=== PATIENT | female | born 1965 | race Caucasian/White ===

== ENCOUNTER → 2016-11-24 | Outpatient (REF) | payer OTHER ==
[~2016-11-24] MED LIST: ALEV220T26 PO; MULTTAB6 PO; PERCOCET PO; TYLE325T5 PO; VALT1TAB PO
[2016-11-24 18:07] LABS: INR 0.92
== END ==
LOC: M LABDRAW1 16:30
PROVIDERS: ATTEND Physical Medicine & Rehabilitation
DX: Z01.818 Encounter for other preprocedural examination (principal); M47.22 Other spondylosis with radiculopathy, cervical region

== ENCOUNTER → 2017-01-20 | Outpatient (REF) | payer OTHER ==
[2017-01-20 16:54] LABS: BLOOD UREA NITROGEN 14 MG/DL (7-18); CREATININE FOR GFR 0.82 MG/DL (0.55-1.02)
[2017-01-20 16:55] LABS: GLOMERULAR FILTRATION RATE > 60.0 (>51)
== END ==
LOC: M LABDRAW1 15:29
PROVIDERS: ATTEND Physical Medicine & Rehabilitation
DX: M48.02 Spinal stenosis, cervical region (principal)

== ENCOUNTER 2017-03-27 15:21 | Emergency (ER) | payer OTHER ==
[~2017-03-27] VITALS: Ht 154.9 cm; Wt 99.8 kg
[2017-03-27 15:22] VITALS: BP 146/74
[2017-03-27] MEDS ORDERED: CLIN1CAP5 PO (15:44)
[2017-03-27] MEDS ORDERED: IBUP80TA PO (15:44)
[2017-03-27] MEDS ORDERED: HYDR1CR EXT (15:44)
[2017-03-27] MEDS ORDERED: CLAR1TAB2 PO (15:44)
== END 2017-03-27 15:55 | disposition home or self-care (01) ==
LOC: M ED 15:54
DX: L98.9 Disorder of the skin and subcutaneous tissue, unspecified (principal); M54.9 Dorsalgia, unspecified; Z79.899 Other long term (current) drug therapy; Z90.79 Acquired absence of other genital organ(s); Z90.49 Acquired absence of other specified parts of digestive tract

== ENCOUNTER 2017-05-16 21:18 | Emergency (ER) | payer OTHER ==
[~2017-05-16] VITALS: Ht 154.9 cm; Wt 106.2 kg
[~2017-05-16 21:18] MED LIST changes: +CLAR1TAB2 PO; +CLIN150C14 PO; +HYDR1CRE2 EXT; +IBUP80TA PO
[2017-05-16] MEDS ORDERED: PRED10PA2 PO (21:34)
[2017-05-17 01:30] LABS: BASO # 0.1 K/mm3 (0.0-0.2); BASO % 0.6 % (0.0-1.0); EOS # 0.1 K/mm3 (0.0-0.50); EOS % 0.7 % (0.0-3.0); LARGE UNSTAINED CELL # 0.3 K/mm3 (0.0-0.4); LARGE UNSTAINED CELL % 1.8 % (0.0-4.0); LYMPH # 1.9 K/mm3 (1.5-4.5); MEAN CORPUSCULAR HEMOGLOBIN 29.9 pg (27.0-33.0); MEAN CORPUSCULAR HGB CONC 34.3 g/dl (32.0-36.5); MEAN CORPUSCULAR VOLUME 87.1 fl (80.0-96.0); MONO # 0.8 K/mm3 (0.0-0.8); MONO % 6.1 % (0.0-5.0); NEUTROPHILS # 10.5 K/mm3 (1.8-7.7); NEUTROPHILS % 76.8 % (36.0-66.0); PLATELET COUNT, AUTOMATED 283 k/mm3 (150-450); RED CELL DISTRIBUTION WIDTH 14.4 % (11.5-14.5); WHITE BLOOD COUNT 13.6 K/mm3 (4.0-10.0)
[2017-05-17 01:50] LABS: ALBUMIN/GLOBULIN RATIO 1.14 (1.00-1.93); ALKALINE PHOSPHATASE 90 U/L (45-117); ALT/SGPT 62 U/L (12-78); ANION GAP 8 MEQ/L (8-16); AST/SGOT 23 U/L (15-37); BILIRUBIN,DIRECT 0.2 MG/DL (0.0-0.2); BILIRUBIN,TOTAL 0.5 MG/DL (0.2-1.0); BLOOD UREA NITROGEN 24 MG/DL (7-18); CALCIUM LEVEL 8.8 MG/DL (8.5-10.1); CARBON DIOXIDE LEVEL 27 MEQ/L (21-32); CHLORIDE LEVEL 108 MEQ/L (98-107); CREATININE FOR GFR 0.75 MG/DL (0.55-1.02); GLOMERULAR FILTRATION RATE > 60.0 (>51); GLUCOSE, FASTING 110 MG/DL (70-105); SODIUM LEVEL 143 MEQ/L (136-145); TOTAL PROTEIN 7.5 GM/DL (6.4-8.2)
[2017-05-17 02:14] LABS: ERYTHROCYTE SEDIMENTATION RATE 19 mm/hr (0-30)
[2017-05-17 04:15] VITALS: BP 178/75
== END 2017-05-17 04:50 | disposition home or self-care (01) ==
LOC: M ED 21:18
DX: L95.9 Vasculitis limited to the skin, unspecified (principal); R21 Rash and other nonspecific skin eruption; Z79.899 Other long term (current) drug therapy; Z90.79 Acquired absence of other genital organ(s); Z90.49 Acquired absence of other specified parts of digestive tract; Z90.89 Acquired absence of other organs

== ENCOUNTER 2017-05-24 15:21 | Emergency (ER) | payer OTHER ==
[~2017-05-24] VITALS: Ht 154.9 cm; Wt 105.1 kg
[~2017-05-24 15:21] MED LIST changes: +PRED10PA2 PO
[2017-05-24] MEDS ORDERED: HYDR-3363 PO (15:33)
[2017-05-24] MEDS ORDERED: PRED10TA2 PO (16:27)
[2017-05-24] MEDS ORDERED: predniSONE 20 MG TAB PO ONE (16:30)
[2017-05-24 16:39] VITALS: BP 137/79
== END 2017-05-24 16:46 | disposition home or self-care (01) ==
LOC: M ED 15:21
DX: L29.8 Other pruritus (principal); T78.40XA Allergy, unspecified, initial encounter; X58.XXXA Exposure to other specified factors, initial encounter; Y92.9 Unspecified place or not applicable; Y93.9 Activity, unspecified; Y99.8 Other external cause status; M54.5 Low back pain; Z90.49 Acquired absence of other specified parts of digestive tract; Z79.899 Other long term (current) drug therapy

== ENCOUNTER 2017-09-22 07:41 | Emergency (ER) | payer MEDICAID, OTHER, SELFPAY ==
[~2017-09-22] VITALS: Ht 154.9 cm; Wt 101.2 kg
[~2017-09-22 07:41] MED LIST changes: +HYDR-3363 PO; +PRED10TA2 PO
--- NOTE | 2017-09-22 08:30 | REP ---
Clinical: Trauma. Technique: AP, lateral, bilateral oblique views left foot . Findings: The osseous structures and joint spaces are intact and normal. There is no evidence for acute fracture or dislocation. Surrounding soft tissues are unremarkable. No subcutaneous emphysema or radiodense foreign body. Impression: No acute fracture or dislocation. Signed by Jose Manuel Avila MD 09/22/2017 08:21 A
[2017-09-22 09:09] VITALS: BP 171/90
== END 2017-09-22 09:11 | disposition home or self-care (01) ==
LOC: M ED 07:41
DX: S90.32XA Contusion of left foot, initial encounter (principal); W19.XXXA Unspecified fall, initial encounter; Y92.098 Other place in other non-institutional residence as the place of occurrence of the external cause; Y93.89 Activity, other specified; Y99.8 Other external cause status

== ENCOUNTER → 2017-11-01 | Outpatient (CLI) | payer OTHER ==
[2017-11-01 09:56] LABS: BASO # 0.1 10^3/uL (0.0-0.2); BASO % 0.6 % (0.0-1.0); EOS # 0.2 10^3/uL (0.0-0.50); EOS % 2.1 % (0.0-3.0); HEMATOCRIT 40.9 % (36.0-47.0); HEMOGLOBIN 13.7 g/dl (12.0-16.0); IMMATURE GRANULOCYTE % 0.2 % (0-0); LYMPH % 23.8 % (24.0-44.0); MEAN CORPUSCULAR HGB CONC 33.5 g/dl (32.0-36.5); MEAN CORPUSCULAR VOLUME 86.5 fl (80.0-96.0); MONO # 0.8 10^3/uL (0.0-0.8); MONO % 9.1 % (0.0-5.0); NEUTROPHILS # 5.3 10^3/uL (1.8-7.7); NEUTROPHILS % 64.2 % (36.0-66.0); PLATELET COUNT, AUTOMATED 259 10^3/uL (150-450); RED BLOOD COUNT 4.73 10^6/uL (4.00-5.40); RED CELL DISTRIBUTION WIDTH 13.9 % (11.5-14.5); WHITE BLOOD COUNT 8.2 10^3/uL (4.0-10.0)
[2017-11-01 09:57] LABS: IONIZED CALCIUM 4.6 MG/DL (4.5-5.3)
[2017-11-01 10:06] LABS: INR 0.99; PROTHROMBIN TIME 13.2 SECONDS (12.4-14.5)
[2017-11-01 10:07] LABS: PARTIAL THROMBOPLASTIN TIME 30.3 SECONDS (26.8-37.9)
[2017-11-01 10:18] LABS: ANION GAP 5 MEQ/L (8-16); BLOOD UREA NITROGEN 12 MG/DL (7-18); CALCIUM LEVEL 9.3 MG/DL (8.5-10.1); CARBON DIOXIDE LEVEL 30 MEQ/L (21-32); CHLORIDE LEVEL 106 MEQ/L (98-107); CREATININE FOR GFR 0.71 MG/DL (0.55-1.02); GLOMERULAR FILTRATION RATE > 60.0 (>51); GLUCOSE, FASTING 96 MG/DL (70-105); POTASSIUM SERUM 4.2 MEQ/L (3.5-5.1); SODIUM LEVEL 141 MEQ/L (136-145)
== END ==
LOC: M LAB 09:21
DX: Z01.812 Encounter for preprocedural laboratory examination (principal); R06.02 Shortness of breath; Z82.49 Family history of ischemic heart disease and other diseases of the circulatory system

== ENCOUNTER 2018-03-27 01:50 | Emergency (ER) | payer OTHER | END 2018-03-27 02:09 | disposition home or self-care (01) | LOC: M ED 01:50 | DX: G89.29 Other chronic pain (principal); M25.512 Pain in left shoulder; M54.9 Dorsalgia, unspecified; M54.2 Cervicalgia; Z79.899 Other long term (current) drug therapy | CPT/HCPCS: 99282 ==

== ENCOUNTER 2018-04-04 07:19 | Outpatient (RCR) | payer OTHER | END 2018-04-23 | LOC: M PT 07:19 | DX: Z51.89 Encounter for other specified aftercare (principal); M25.512 Pain in left shoulder | CPT/HCPCS: 97010 ==

== ENCOUNTER 2018-04-25 09:21 | Outpatient (RCR) | payer OTHER | END 2018-05-24 | LOC: M PT 09:21 | DX: Z51.89 Encounter for other specified aftercare (principal); M75.42 Impingement syndrome of left shoulder; R20.0 Anesthesia of skin; R20.2 Paresthesia of skin; G25.89 Other specified extrapyramidal and movement disorders ==

== ENCOUNTER 2018-05-25 08:14 | Outpatient (RCR) | payer OTHER | END 2018-06-24 | LOC: M PT 06-01 08:00 | DX: M25.512 Pain in left shoulder (principal); Z51.89 Encounter for other specified aftercare | CPT/HCPCS: 97010 ==

== ENCOUNTER → 2018-12-12 | Outpatient (CLI) | payer OTHER ==
[~2018-12-12] MED LIST changes: +HYDR-3713 PO; +TIZA4CAP PO
[2018-12-12 08:18] LABS: BASO # 0.1 10^3/uL (0.0-0.2); BASO % 0.8 % (0.0-1.0); EOS # 0.2 10^3/uL (0.0-0.50); EOS % 2.1 % (0.0-3.0); HEMATOCRIT 41.5 % (36.0-47.0); HEMOGLOBIN 13.9 g/dl (12.0-15.5); LYMPH # 2.1 10^3/uL (1.5-4.5); MEAN CORPUSCULAR HEMOGLOBIN 29.6 pg (27.0-33.0); MEAN CORPUSCULAR HGB CONC 33.5 g/dl (32.0-36.5); MEAN CORPUSCULAR VOLUME 88.3 fl (80.0-96.0); MONO # 0.8 10^3/uL (0.0-0.8); NEUTROPHILS % 60.6 % (36.0-66.0); PLATELET COUNT, AUTOMATED 259 10^3/uL (150-450); WHITE BLOOD COUNT 8.2 10^3/uL (4.0-10.0)
[2018-12-12 08:58] LABS: ALBUMIN 4.3 GM/DL (3.2-5.2); ALT/SGPT 48 U/L (12-78); BILIRUBIN,TOTAL 0.8 MG/DL (0.2-1.0); BLOOD UREA NITROGEN 16 MG/DL (7-18); CALCIUM LEVEL 9.2 MG/DL (8.5-10.1); CARBON DIOXIDE LEVEL 29 MEQ/L (21-32); CHLORIDE LEVEL 107 MEQ/L (98-107); CHOLESTEROL LEVEL 234 MG/DL (<200); CHOLESTEROL RISK RATIO 4.588 (<5); CREATININE FOR GFR 0.73 MG/DL (0.55-1.30); GLOMERULAR FILTRATION RATE > 60.0 (>51); GLUCOSE, FASTING 97 MG/DL (70-100); HDL CHOLESTEROL 51 MG/DL (>40); LDL CHOLESTEROL 164 MG/DL (<100); NON-HDL-C 183 MG/DL; POTASSIUM SERUM 5.1 MEQ/L (3.5-5.1); SODIUM LEVEL 140 MEQ/L (136-145); TOTAL PROTEIN 7.9 GM/DL (6.4-8.2); TRIGLYCERIDES LEVEL 93 MG/DL (<150)
== END ==
LOC: M LAB 07:54
PROVIDERS: ATTEND Physician Assistant Medical
DX: R53.83 Other fatigue (principal); I10 Essential (primary) hypertension

== ENCOUNTER 2018-12-21 07:30 | Outpatient (RCR) | payer OTHER | END 2018-12-22 | LOC: M PT 07:30 | PROVIDERS: ATTEND Orthopaedic Surgery | DX: M75.42 Impingement syndrome of left shoulder (principal); M75.22 Bicipital tendinitis, left shoulder ==

== ENCOUNTER 2019-01-20 07:30 | Outpatient (RCR) | payer OTHER | END 2019-01-22 | LOC: M PT 07:30 | PROVIDERS: ATTEND Orthopaedic Surgery | DX: M75.22 Bicipital tendinitis, left shoulder (principal) ==

== ENCOUNTER 2019-02-20 08:15 | Outpatient (RCR) | payer OTHER ==
[~2019-02-20 08:15] MED LIST changes: +OXYC1TAB23 PO; -PERCOCET PO
== END 2019-02-21 ==
LOC: M PT 08:15
PROVIDERS: ATTEND Orthopaedic Surgery
DX: M25.512 Pain in left shoulder (principal)

== ENCOUNTER 2019-02-22 19:39 | Emergency (ER) | payer OTHER ==
[~2019-02-22] VITALS: Ht 154.9 cm; Wt 100.0 kg
[2019-02-22 19:40] VITALS: BP 154/86
--- NOTE | 2019-02-23 01:31 | REP ---
Clinical: Left shoulder pain status post trauma/fall . Technique: Internal rotation, external rotation, and Y view. Findings: No acute fracture or dislocation. The acromioclavicular and glenohumeral joints are intact. No periarticular calcifications or degenerative changes are appreciated. Sub acromial space is normal. Surrounding soft tissues are unremarkable. Impression: Normal left shoulder radiographs. No acute fracture or dislocation appreciated. Electronically Signed by Jose Manuel Avila MD 02/23/2019 01:23 A
== END 2019-02-22 21:45 | disposition home or self-care (01) ==
LOC: M ED 19:39
DX: S40.012A Contusion of left shoulder, initial encounter (principal); W19.XXXA Unspecified fall, initial encounter; Y92.099 Unspecified place in other non-institutional residence as the place of occurrence of the external cause; Y93.9 Activity, unspecified; Y99.9 Unspecified external cause status; Z79.899 Other long term (current) drug therapy

== ENCOUNTER → 2019-03-24 | Outpatient (RCR) | payer OTHER | LOC: M PT 03-10 07:30 | PROVIDERS: ATTEND Orthopaedic Surgery | DX: M75.42 Impingement syndrome of left shoulder (principal); M75.22 Bicipital tendinitis, left shoulder ==

== ENCOUNTER 2019-07-19 07:49 | Outpatient (RCR) | payer OTHER | END 2019-07-24 | LOC: M PT 07:49 | PROVIDERS: ATTEND Orthopaedic Surgery | DX: Z47.89 Encounter for other orthopedic aftercare (principal); Z98.890 Other specified postprocedural states; M25.512 Pain in left shoulder ==

== ENCOUNTER 2019-08-21 07:45 | Outpatient (RCR) | payer OTHER | END 2019-08-24 | LOC: M PT 07:45 | PROVIDERS: ATTEND Orthopaedic Surgery | DX: Z47.89 Encounter for other orthopedic aftercare (principal); Z98.890 Other specified postprocedural states ==

== ENCOUNTER 2019-09-19 07:00 | Outpatient (RCR) | payer OTHER | END 2019-09-23 | LOC: M PT 07:00 | PROVIDERS: ATTEND Orthopaedic Surgery | DX: Z47.89 Encounter for other orthopedic aftercare (principal); Z98.890 Other specified postprocedural states ==

== ENCOUNTER 2019-10-17 07:00 | Outpatient (RCR) | payer OTHER | END 2019-10-24 | LOC: M PT 07:00 | PROVIDERS: ATTEND Orthopaedic Surgery | DX: Z98.890 Other specified postprocedural states (principal) ==

== ENCOUNTER → 2020-07-18 | Outpatient (CLI) | payer OTHER ==
[2020-07-18 07:17] LABS: BASO # 0.1 10^3/uL (0.0-0.2); BASO % 0.7 % (0.0-1.0); EOS # 0.3 10^3/uL (0.0-0.5); EOS % 3.1 % (0.0-3.0); HEMATOCRIT 41.5 % (36.0-47.0); HEMOGLOBIN 13.4 g/dl (12.0-15.5); LYMPH # 2.5 10^3/uL (1.5-5.0); LYMPH % 26.9 % (24.0-44.0); MEAN CORPUSCULAR HEMOGLOBIN 29.3 pg (27.0-33.0); MEAN CORPUSCULAR HGB CONC 32.3 g/dl (32.0-36.5); MEAN CORPUSCULAR VOLUME 90.6 fl (80.0-96.0); MONO # 0.9 10^3/uL (0.0-0.8); MONO % 9.3 % (0.0-5.0); NEUTROPHILS # 5.6 10^3/uL (1.5-8.5); NEUTROPHILS % 59.4 % (36.0-66.0); PLATELET COUNT, AUTOMATED 238 10^3/uL (150-450); RED BLOOD COUNT 4.58 10^6/uL (4.00-5.40); WHITE BLOOD COUNT 9.5 10^3/uL (4.0-10.0)
[2020-07-18 07:38] LABS: ALBUMIN 3.8 GM/DL (3.2-5.2); ALT/SGPT 30 U/L (12-78); BILIRUBIN,TOTAL 0.5 MG/DL (0.2-1.0); BLOOD UREA NITROGEN 20 MG/DL (7-18); CARBON DIOXIDE LEVEL 28 MEQ/L (21-32); CHLORIDE LEVEL 110 MEQ/L (98-107); CHOLESTEROL LEVEL 247 MG/DL (<200); CHOLESTEROL RISK RATIO 5.145 (<5); CREATININE FOR GFR 0.67 MG/DL (0.55-1.30); GLOMERULAR FILTRATION RATE > 60.0 (>51); GLUCOSE, FASTING 97 MG/DL (70-100); HDL CHOLESTEROL 48 MG/DL (>40); IRON (FE) 53 UG/DL (50-170); LDL CHOLESTEROL 165 MG/DL (<100); NON-HDL-C 199 MG/DL; PERCENT SATURATION 17.9 % (13.2-45.0); POTASSIUM SERUM 4.6 MEQ/L (3.5-5.1); SODIUM LEVEL 141 MEQ/L (136-145); TOTAL IRON BINDING CAPACITY 296 UG/DL (250-450); TOTAL PROTEIN 7.6 GM/DL (6.4-8.2); TRIGLYCERIDES LEVEL 168 MG/DL (<150)
[2020-07-18 07:39] LABS: FERRITIN 118 NG/ML (8-252)
[2020-07-18 09:45] LABS: VITAMIN B12 LEVEL 687 PG/ML
--- NOTE | 2020-07-20 09:14 | ECGEPIP ---
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
--- NOTE | 2020-07-26 07:48 | REP ---
CHEST X-RAY CLINICAL: Preoperative assessment. TECHNIQUE: PA and lateral. FINDINGS: Mediastinum and cardiac silhouette normal. Lung go clear. No consolidation, effusion, or pneumothorax. Skeletal structures are intact. Evidence for prior cervical fixation. IMPRESSION: No acute cardiopulmonary process or focal consolidation. MTDD
== END ==
LOC: M LAB 06:35
PROVIDERS: ATTEND Surgery
DX: Z01.810 Encounter for preprocedural cardiovascular examination (principal); E66.01 Morbid (severe) obesity due to excess calories

== ENCOUNTER → 2020-12-24 | Outpatient (CLI) | payer OTHER ==
[~2020-12-24] MED LIST changes: -CLIN150C14 PO; +CLIN150C15 PO
--- NOTE | 2020-12-24 11:24 | REP ---
INDICATION: LEFT SHOULDER PAIN. COMPARISON: None. TECHNIQUE: Internal rotation, external rotation, Y-view and axillary view. FINDINGS: There appears to be prior surgical resection to the distal clavicle. Remainder of the examination is relatively age-appropriate and normal. Subacromial space is normal. No periarticular calcifications or loose bodies. No evidence for acute fracture or dislocation. IMPRESSION: 1. Surgical resection to the distal clavicle. 2. Otherwise age-appropriate examination. <Electronically signed by Jose Manuel Avila > 12/24/20 [id number]
== END ==
LOC: M SOG 11:01
PROVIDERS: ATTEND Orthopaedic Surgery Sports Medicine
DX: M75.42 Impingement syndrome of left shoulder (principal)

== ENCOUNTER → 2021-01-14 | Outpatient (CLI) | payer OTHER ==
--- NOTE | 2021-01-15 10:24 | REP ---
INDICATION: LEFT SHOULDER PAIN. Status post arthroscopic debridement, chondroplasty, acromioplasty, distal clavicle excision and rotator cuff repair since prior MRI. COMPARISON: 05/06/2019. TECHNIQUE: Coronal oblique T1, T2 fat sat, sagittal oblique T2 fat sat, axial T2 fat sat, gradient echo. FINDINGS: Rotator cuff: No evidence of tear. An anterior anchor is noted in the humeral head. There is mild tendinopathy/tendinitis of the supraspinatus tendon. Acromioclavicular joint: Distal clavicle excision noted. No subacromial spurring seen. Acromion: Type 2 Biceps Tendon: In bicipital groove, no tenosynovitis. Hill Sach's deformity: None. Deltoid muscle: No abnormal signal. Biceps labral complex: There appears to be mild fraying of the biceps labral complex. Labrum: No tear. Cartilage: No defects. Bone marrow: No abnormal signal. Joint fluid: No effusion. IMPRESSION: Postsurgical changes as above. No evidence of rotator cuff tear or labral tear. There is mild tendinopathy/tendinitis of the supraspinatus tendon. There appears to be mild fraying of the biceps labral complex. <Electronically signed by Celestino Mccracken > 01/15/21 102
== END ==
LOC: M PLARAD 12:25
PROVIDERS: ATTEND Orthopaedic Surgery Sports Medicine
DX: M75.42 Impingement syndrome of left shoulder (principal)

== ENCOUNTER → 2021-04-30 | Outpatient (CLI) | payer MEDICARE, OTHER ==
[2021-04-30 07:25] LABS: HEMATOCRIT 39.7 % (36.0-47.0); HEMOGLOBIN 12.9 g/dl (12.0-15.5); MEAN CORPUSCULAR HGB CONC 32.5 g/dl (32.0-36.5); MEAN CORPUSCULAR VOLUME 89.2 fl (80.0-96.0); PLATELET COUNT, AUTOMATED 229 10^3/uL (150-450); RED BLOOD COUNT 4.45 10^6/uL (4.00-5.40); WHITE BLOOD COUNT 7.5 10^3/uL (4.0-10.0)
[2021-04-30 07:55] LABS: ALBUMIN 4.2 GM/DL (3.2-5.2); ALT/SGPT 26 U/L (12-78); BILIRUBIN,TOTAL 0.7 MG/DL (0.2-1.0); BLOOD UREA NITROGEN 15 MG/DL (7-18); CALCIUM LEVEL 8.9 MG/DL (8.5-10.1); CARBON DIOXIDE LEVEL 28 MEQ/L (21-32); CHLORIDE LEVEL 108 MEQ/L (98-107); CREATININE FOR GFR 0.55 MG/DL (0.55-1.30); FERRITIN 192 NG/ML (8-252); GLOMERULAR FILTRATION RATE > 60.0 (>51); GLUCOSE, FASTING 77 MG/DL (70-100); IRON (FE) 56 UG/DL (50-170); PERCENT SATURATION 21.5 % (13.2-45.0); POTASSIUM SERUM 3.8 MEQ/L (3.5-5.1); SODIUM LEVEL 142 MEQ/L (136-145); TOTAL IRON BINDING CAPACITY 260 UG/DL (250-450); TOTAL PROTEIN 7.4 GM/DL (6.4-8.2)
[2021-04-30 09:39] LABS: TOTAL 25(OH) VITAMIN D 37.1 NG/ML (30.0-100.0)
[2021-04-30 09:40] LABS: VITAMIN B12 LEVEL 940 PG/ML (247-911)
== END ==
LOC: M LAB 06:24
PROVIDERS: ATTEND Surgery
DX: K91.2 Postsurgical malabsorption, not elsewhere classified (principal)

== ENCOUNTER → 2021-05-09 | Outpatient (CLI) | payer OTHER | LOC: M PAIN 08:30 | PROVIDERS: ATTEND Nurse Practitioner Family | DX: Z53.9 Procedure and treatment not carried out, unspecified reason (principal) ==

== ENCOUNTER → 2021-05-09 | Outpatient (CLI) | payer OTHER ==
[~2021-05-09] MED LIST changes: +LIDOCAINE 1% MDV 20ML VIAL As Ordered ONE; +TRIAMCINOLONE ACETONIDE SUSP 40 MG/ML VIAL (J3301) As Ordered ONE; +methylPREDNISolone SUSP 40MG/ML 1ML VIAL (DEPO MEDROL) As Ordered ONE
--- NOTE | 2021-05-09 14:57 | REP ---
INDICATION: STRAIN LT ARM. COMPARISON: None. TECHNIQUE: The procedure was performed under the direct supervision of Dr. Weber. The risks and benefits of the procedure were explained to the patient and informed consent obtained. The left biceps tendon sheath was localized using ultrasound guidance. The skin was prepped and draped in a sterile fashion. 1% lidocaine was used as a local anesthetic. Using ultrasound guidance a 25 gauge needle was inserted and advanced into the tendon sheath. 5 cc of a solution containing 3 cc of 1% lidocaine and 2 cc of Depo-Medrol 40 mg was injected. The needle was then removed. The patient tolerated the procedure well and there were no immediate complications. FINDINGS: None IMPRESSION: Ultrasound-guided left biceps tendon sheath injection. <Electronically signed by Jose M Milner > 05/09/21 [id number] <Electronically signed by Matty Weber > 05/09/21 [id number]
== END ==
LOC: M IRPRO 09:40
PROVIDERS: ATTEND Orthopaedic Surgery Sports Medicine
DX: S46.212A Strain of muscle, fascia and tendon of other parts of biceps, left arm, initial encounter (principal)
CPT/HCPCS: 20550; 76942; J1030

== ENCOUNTER → 2021-07-23 | Outpatient (CLI) | payer MEDICARE, OTHER ==
[~2021-07-23] MED LIST changes: -CLIN150C15 PO; +CLIN150C17 PO; -LIDOCAINE 1% MDV 20ML VIAL As Ordered ONE; -TRIAMCINOLONE ACETONIDE SUSP 40 MG/ML VIAL (J3301) As Ordered ONE; -methylPREDNISolone SUSP 40MG/ML 1ML VIAL (DEPO MEDROL) As Ordered ONE
[2021-07-23 08:21] LABS: HEMATOCRIT 40.4 % (36.0-47.0); HEMOGLOBIN 13.2 g/dl (12.0-15.5); MEAN CORPUSCULAR HEMOGLOBIN 29.3 pg (27.0-33.0); MEAN CORPUSCULAR HGB CONC 32.7 g/dl (32.0-36.5); MEAN CORPUSCULAR VOLUME 89.8 fl (80.0-96.0); PLATELET COUNT, AUTOMATED 257 10^3/uL (150-450); WHITE BLOOD COUNT 7.8 10^3/uL (4.0-10.0)
[2021-07-23 08:46] LABS: ALBUMIN 4.1 GM/DL (3.2-5.2); ALT/SGPT 32 U/L (12-78); BILIRUBIN,TOTAL 0.9 MG/DL (0.2-1.0); BLOOD UREA NITROGEN 17 MG/DL (7-18); CALCIUM LEVEL 9.3 MG/DL (8.5-10.1); CARBON DIOXIDE LEVEL 31 MEQ/L (21-32); CHLORIDE LEVEL 106 MEQ/L (98-107); CREATININE FOR GFR 0.62 MG/DL (0.55-1.30); FERRITIN 210 NG/ML (8-252); GLOMERULAR FILTRATION RATE > 60.0 (>51); GLUCOSE, FASTING 78 MG/DL (70-100); IRON (FE) 79 UG/DL (50-170); PERCENT SATURATION 29.4 % (13.2-45.0); POTASSIUM SERUM 3.7 MEQ/L (3.5-5.1); SODIUM LEVEL 142 MEQ/L (136-145); TOTAL IRON BINDING CAPACITY 269 UG/DL (250-450); TOTAL PROTEIN 7.4 GM/DL (6.4-8.2)
[2021-07-23 10:24] LABS: TOTAL 25(OH) VITAMIN D 40.3 NG/ML (30.0-100.0); VITAMIN B12 LEVEL 1408 PG/ML (247-911)
== END ==
LOC: M LAB 07:19
PROVIDERS: ATTEND Surgery
DX: K91.2 Postsurgical malabsorption, not elsewhere classified (principal)

== ENCOUNTER → 2021-10-15 | Outpatient (CLI) | payer MEDICARE, OTHER ==
[2021-10-15 08:12] LABS: HEMATOCRIT 39.6 % (36.0-47.0); HEMOGLOBIN 13.1 g/dl (12.0-15.5); MEAN CORPUSCULAR HEMOGLOBIN 29.5 pg (27.0-33.0); MEAN CORPUSCULAR HGB CONC 33.1 g/dl (32.0-36.5); MEAN CORPUSCULAR VOLUME 89.2 fl (80.0-96.0); PLATELET COUNT, AUTOMATED 208 10^3/uL (150-450); RED BLOOD COUNT 4.44 10^6/uL (4.00-5.40)
[2021-10-15 08:41] LABS: ALBUMIN 4.1 GM/DL (3.2-5.2); ALT/SGPT 36 U/L (12-78); BLOOD UREA NITROGEN 15 MG/DL (7-18); CALCIUM LEVEL 9.4 MG/DL (8.5-10.1); CARBON DIOXIDE LEVEL 30 MEQ/L (21-32); CHLORIDE LEVEL 107 MEQ/L (98-107); CREATININE FOR GFR 0.62 MG/DL (0.55-1.30); FERRITIN 255 NG/ML (8-252); GLOMERULAR FILTRATION RATE > 60.0 (>51); GLUCOSE, FASTING 80 MG/DL (70-100); IRON (FE) 80 UG/DL (50-170); POTASSIUM SERUM 4.3 MEQ/L (3.5-5.1); SODIUM LEVEL 141 MEQ/L (136-145); TOTAL IRON BINDING CAPACITY 258 UG/DL (250-450); TOTAL PROTEIN 7.3 GM/DL (6.4-8.2)
[2021-10-15 09:23] LABS: TOTAL 25(OH) VITAMIN D 38.5 NG/ML (30.0-100.0); VITAMIN B12 LEVEL > 2000 PG/ML (247-911)
== END ==
LOC: M LAB 07:04
PROVIDERS: ATTEND Surgery
DX: K91.2 Postsurgical malabsorption, not elsewhere classified (principal)

== ENCOUNTER → 2021-12-29 | Outpatient (CLI) | payer MEDICARE, OTHER | LOC: M WHC 15:00 | PROVIDERS: ATTEND Physician Assistant | DX: Z12.31 Encounter for screening mammogram for malignant neoplasm of breast (principal) ==

== ENCOUNTER → 2021-12-31 | Outpatient (CLI) | payer MEDICARE, OTHER ==
[2021-12-31 09:25] LABS: BASO % 0.7 % (0.0-1.0); EOS # 0.1 10^3/uL (0.0-0.5); EOS % 1.7 % (0.0-3.0); HEMATOCRIT 36.7 % (36.0-47.0); HEMOGLOBIN 12.1 g/dl (12.0-15.5); LYMPH # 1.3 10^3/uL (1.5-5.0); MEAN CORPUSCULAR HEMOGLOBIN 29.7 pg (27.0-33.0); MONO # 0.6 10^3/uL (0.0-0.8); MONO % 9.6 % (2.0-8.0); NEUTROPHILS # 3.9 10^3/uL (1.5-8.5); NEUTROPHILS % 65.8 % (36.0-66.0); PLATELET COUNT, AUTOMATED 213 10^3/uL (150-450); RED BLOOD COUNT 4.08 10^6/uL (4.00-5.40); WHITE BLOOD COUNT 5.9 10^3/uL (4.0-10.0)
[2021-12-31 10:18] LABS: ALT/SGPT 25 U/L (12-78); BILIRUBIN,TOTAL 0.9 MG/DL (0.2-1.0); BLOOD UREA NITROGEN 17 MG/DL (7-18); CALCIUM LEVEL 9.2 MG/DL (8.5-10.1); CARBON DIOXIDE LEVEL 31 MEQ/L (21-32); CHLORIDE LEVEL 109 MEQ/L (98-107); CHOLESTEROL LEVEL 179 MG/DL (<200); CHOLESTEROL RISK RATIO 3.254 (<5); CREATININE FOR GFR 0.57 MG/DL (0.55-1.30); FERRITIN 201 NG/ML (8-252); GLOMERULAR FILTRATION RATE > 60.0 (>51); GLUCOSE, FASTING 70 MG/DL (70-100); HDL CHOLESTEROL 55 MG/DL (>40); IRON (FE) 70 UG/DL (50-170); LDL CHOLESTEROL 105 MG/DL (<100); NON-HDL-C 124 MG/DL; PERCENT SATURATION 27.2 % (13.2-45.0); POTASSIUM SERUM 4.3 MEQ/L (3.5-5.1); SODIUM LEVEL 142 MEQ/L (136-145); TOTAL 25(OH) VITAMIN D 36.1 NG/ML (30.0-100.0); TOTAL IRON BINDING CAPACITY 257 UG/DL (250-450); TRIGLYCERIDES LEVEL 97 MG/DL (<150)
== END ==
LOC: M LAB 08:00
PROVIDERS: ATTEND Registered Nurse
DX: E66.01 Morbid (severe) obesity due to excess calories (principal)

== ENCOUNTER → 2022-04-01 | Outpatient (CLI) | payer MEDICARE, OTHER ==
[~2022-04-01] MED LIST changes: +BIOT1000 PO; +CYAN100050 PO; +OMEP40CA5 PO; +VIAC1CHW PO; +VITMTA PO
== END ==
LOC: M LABSMTC 10:00
PROVIDERS: ATTEND Anesthesiology
DX: Z01.812 Encounter for preprocedural laboratory examination (principal)

== ENCOUNTER 2022-04-06 08:52 | Day surgery (SDC) | payer MEDICARE, OTHER ==
[~2022-04-06] VITALS: Ht 154.9 cm; Wt 53.9 kg
[~2022-04-06 08:52] MED LIST changes: +LIDOCAINE 2% 100MG/5ML SDV (FOR ANES.) As Ordered ONE; +NS 1,000 ML IV ONE; +propofoL 200 MG/20 ML VIAL As Ordered ONE
[2022-04-06 10:35] VITALS: BP 144/67
== END 2022-04-06 10:41 | disposition home or self-care (01) ==
LOC: M OPP 08:52
PROVIDERS: ATTEND Internal Medicine Gastroenterology
DX: Z12.11 Encounter for screening for malignant neoplasm of colon (principal); K57.30 Diverticulosis of large intestine without perforation or abscess without bleeding; K64.0 First degree hemorrhoids; Z79.891 Long term (current) use of opiate analgesic; Z79.899 Other long term (current) drug therapy; Z98.84 Bariatric surgery status

== ENCOUNTER → 2022-05-14 | Outpatient (CLI) | payer MEDICARE ==
[~2022-05-14] MED LIST changes: -LIDOCAINE 2% 100MG/5ML SDV (FOR ANES.) As Ordered ONE; -NS 1,000 ML IV ONE; -propofoL 200 MG/20 ML VIAL As Ordered ONE
[2022-05-14 12:56] LABS: BASO # 0.1 10^3/uL (0.0-0.2); BASO % 0.9 % (0.0-1.0); EOS # 0.2 10^3/uL (0.0-0.5); EOS % 2.3 % (0.0-3.0); HEMATOCRIT 37.5 % (36.0-47.0); HEMOGLOBIN 12.6 g/dl (12.0-15.5); LYMPH # 1.7 10^3/uL (1.5-5.0); LYMPH % 26.2 % (24.0-44.0); MEAN CORPUSCULAR HEMOGLOBIN 30.7 pg (27.0-33.0); MEAN CORPUSCULAR HGB CONC 33.6 g/dl (32.0-36.5); MEAN CORPUSCULAR VOLUME 91.2 fl (80.0-96.0); MONO # 0.5 10^3/uL (0.0-0.8); MONO % 7.9 % (2.0-8.0); NEUTROPHILS % 62.5 % (36.0-66.0); PLATELET COUNT, AUTOMATED 206 10^3/uL (150-450); RED BLOOD COUNT 4.11 10^6/uL (4.00-5.40); WHITE BLOOD COUNT 6.4 10^3/uL (4.0-10.0)
[2022-05-14 13:39] LABS: ALBUMIN 4.6 GM/DL (3.2-5.2); BLOOD UREA NITROGEN 16 MG/DL (7-18); CALCIUM LEVEL 9.3 MG/DL (8.5-10.1); CARBON DIOXIDE LEVEL 29 MEQ/L (21-32); CHLORIDE LEVEL 108 MEQ/L (98-107); CREATININE FOR GFR 0.59 MG/DL (0.55-1.30); FERRITIN 242 NG/ML (8-252); GLOMERULAR FILTRATION RATE > 60.0 (>51); GLUCOSE, FASTING 86 MG/DL (70-100); PHOSPHORUS LEVEL 4.3 MG/DL (2.5-4.9); POTASSIUM SERUM 4.2 MEQ/L (3.5-5.1); SODIUM LEVEL 142 MEQ/L (136-145)
[2022-05-14 14:23] LABS: TOTAL 25(OH) VITAMIN D 31.8 NG/ML (30.0-100.0)
== END ==
LOC: M LAB 12:03
PROVIDERS: ATTEND Physician Assistant
DX: Z01.818 Encounter for other preprocedural examination (principal); Z98.84 Bariatric surgery status; Z79.899 Other long term (current) drug therapy

== ENCOUNTER → 2022-05-14 | Outpatient (CLI) | payer MEDICARE | LOC: M LABSMTC 09:46 | PROVIDERS: ATTEND Anesthesiology | DX: Z01.818 Encounter for other preprocedural examination (principal); Z11.52 Encounter for screening for COVID-19 ==

== ENCOUNTER 2022-05-19 09:17 | Observation (INO) | payer MEDICARE ==
[2022-05-19] VITALS (7 sets, daily range): BP systolic 120–155; BP diastolic 55–71
[~2022-05-19] VITALS: Ht 154.9 cm; Wt 53.1 kg
[~2022-05-19 09:17] MED LIST changes: +ceFAZolin SOD 2 GM in IV 1 EA IV ONE
[2022-05-19] MEDS ORDERED: LIDOCAINE 2% 100MG/5ML SDV (FOR ANES.) As Ordered ONE (09:29)
[2022-05-19] MEDS ORDERED: ROCURONIUM BROMIDE 50 MG/5 ML VIAL As Ordered ONE (09:29)
[2022-05-19] MEDS ORDERED: fentaNYL 250 MCG/5 ML INJECTION As Ordered ONE (09:29)
[2022-05-19] MEDS ORDERED: dexameTHASONE 4 MG/ML 1ML VIAL (J1100 PER 1MG) As Ordered ONE (09:29)
[2022-05-19] MEDS ORDERED: propofoL 200 MG/20 ML VIAL As Ordered ONE (09:29)
[2022-05-19] MEDS ORDERED: ONDANSETRON 4MG 2ML VIAL As Ordered ONE ×2 (09:29→13:47)
[2022-05-19] MEDS ORDERED: MIDAZOLAM INJ 2MG/2ML VIAL (J2250 PER 1MG) As Ordered ONE (09:30)
[2022-05-19] MEDS ORDERED: GENTAMICIN SULF 80MG/2ML VIAL As Ordered ONE (11:03)
[2022-05-19] MEDS ORDERED: BUPIVACAINE LIPOSOME/PF 1.3% 20ML VIAL (13.3MG/ML)(EXPAREL) As Ordered ONE (11:03)
[2022-05-19] MEDS ORDERED: BUPIVACAINE HCL 0.25% 10ML VIAL As Ordered ONE (11:03)
[2022-05-19] MEDS ORDERED: SEVOFLURANE INHAL SOLN 250 ML BTL As Ordered ONE (11:53)
[2022-05-19] MEDS ORDERED: GLYCOPYRROLATE INJ 0.2 MG/ML 2 ML VIAL As Ordered ONE (12:42)
[2022-05-19] MEDS ORDERED: LACRILUBE (AKWA TEARS) OPHTH OINT 3.5 GM As Ordered ONE (12:42)
[2022-05-19] MEDS ORDERED: ACETAMINOPHEN 1000MG 100ML IV BTL (OFIRMEV) (J0131 PER 10MG) As Ordered ONE (13:28)
[2022-05-19] MEDS ORDERED: METOCLOPRAMIDE INJ 10MG/2ML VIAL (J2765 PER 1) As Ordered ONE (13:46)
[2022-05-19] MEDS ORDERED: SUGAMMADEX SODIUM 500 MG/5 ML VIAL (BRIDION) As Ordered ONE (13:46)
[2022-05-19] MEDS ORDERED: diphenhydrAMINE 50MG/ML VIAL (J1200) As Ordered ONE (13:46)
[2022-05-19] MEDS ORDERED: ePHEDrine SULFATE 25 MG/5 ML(5MG/ML) SYRINGE As Ordered ONE (13:55)
[2022-05-19] MEDS ORDERED: HYDROmorphone HCL 2MG/ML 1ML VIAL As Ordered ONE (13:57)
[2022-05-19] MEDS ORDERED: HYDROMORPHONE HCL 0.5 MG/ 0.5 ML SYRINGE (J1170 PER 1) IV PRN (15:45)
[2022-05-19] MEDS ORDERED: METOCLOPRAMIDE INJ 10MG/2ML VIAL (J2765 PER 1) IV PRN (15:45)
[2022-05-19] MEDS ORDERED: PERCOCET 5MG/325MG TAB PO PRN ×2 (15:45)
[2022-05-19] MEDS ORDERED: oxyCODONE 5MG TAB PO PRN (15:45)
[2022-05-19] MEDS ORDERED: ONDANSETRON 4MG 2ML VIAL IV PRN ×2 (15:45)
[2022-05-19] MEDS ORDERED: ceFAZolin SOD 2 GM in IV 1 EA IV ONE (15:45)
[2022-05-19] MEDS ORDERED: traMADol 50 MG TAB PO PRN (15:45)
[2022-05-19] MEDS ORDERED: ACETAMINOPHEN TAB 650MG DOSE (2X325MG) PO PRN (15:45)
[2022-05-19] MEDS: LR 1,000 ML IV SCH ×3 (15:45→17:17)
[2022-05-19] MEDS ORDERED: fentaNYL 100 MCG/2 ML INJECTION IV PRN (15:45)
[2022-05-20 01:30] VITALS: BP 113/54
[2022-05-20] MEDS: LR 1,000 ML IV SCH (05:53)
[2022-05-20 06:00] VITALS: BP 127/59
== END 2022-05-20 12:17 | disposition home or self-care (01) ==
LOC: M SDC 09:17 → M MSPAV 09:18 → M SDC 16:39 → M MSPAV 05-20 12:17
PROVIDERS: ADMIT Plastic Surgery Surgery of the Hand; ATTEND Plastic Surgery Surgery of the Hand
DX: M79.3 Panniculitis, unspecified (principal); I11.9 Hypertensive heart disease without heart failure; K21.9 Gastro-esophageal reflux disease without esophagitis; Q85.00 Neurofibromatosis, unspecified; Z98.84 Bariatric surgery status; Z79.899 Other long term (current) drug therapy
CPT/HCPCS: 15830; 15847; 88300; C9290; J0131; J0690; J1100; J1170; J1200; J1580; J2250; J2405; J2765; J3010

== ENCOUNTER → 2022-07-19 | Outpatient (CLI) | payer MEDICARE ==
[~2022-07-19] MED LIST changes: -ceFAZolin SOD 2 GM in IV 1 EA IV ONE
[2022-07-19 08:33] LABS: BASO # 0.1 10^3/uL (0.0-0.2); BASO % 0.9 % (0.0-1.0); EOS # 0.3 10^3/uL (0.0-0.5); HEMATOCRIT 38.7 % (36.0-47.0); HEMOGLOBIN 12.6 g/dl (12.0-15.5); LYMPH % 31.1 % (24.0-44.0); MEAN CORPUSCULAR HEMOGLOBIN 29.5 pg (27.0-33.0); MEAN CORPUSCULAR HGB CONC 32.6 g/dl (32.0-36.5); MEAN CORPUSCULAR VOLUME 90.6 fl (80.0-96.0); MONO # 0.6 10^3/uL (0.0-0.8); MONO % 9.5 % (2.0-8.0); NEUTROPHILS # 3.4 10^3/uL (1.5-8.5); NEUTROPHILS % 53.3 % (36.0-66.0); PLATELET COUNT, AUTOMATED 224 10^3/uL (150-450); RED BLOOD COUNT 4.27 10^6/uL (4.00-5.40); WHITE BLOOD COUNT 6.4 10^3/uL (4.0-10.0)
[2022-07-19 09:17] LABS: ALBUMIN 4.2 GM/DL (3.2-5.2); ALT/SGPT 112 U/L (12-78); BLOOD UREA NITROGEN 16 MG/DL (7-18); CARBON DIOXIDE LEVEL 30 MEQ/L (21-32); CHLORIDE LEVEL 108 MEQ/L (98-107); CHOLESTEROL LEVEL 185 MG/DL (<200); CHOLESTEROL RISK RATIO 2.534 (<5); CREATININE FOR GFR 0.65 MG/DL (0.55-1.30); FERRITIN 225 NG/ML (8-252); GLOMERULAR FILTRATION RATE > 60.0 (>51); GLUCOSE, FASTING 80 MG/DL (70-100); HDL CHOLESTEROL 73 MG/DL (>40); IRON (FE) 106 UG/DL (50-170); LDL CHOLESTEROL 96 MG/DL (<100); NON-HDL-C 112 MG/DL; PERCENT SATURATION 36.3 % (13.2-45.0); POTASSIUM SERUM 3.9 MEQ/L (3.5-5.1); SODIUM LEVEL 140 MEQ/L (136-145); TOTAL IRON BINDING CAPACITY 292 UG/DL (250-450); TOTAL PROTEIN 7.4 GM/DL (6.4-8.2); TRIGLYCERIDES LEVEL 79 MG/DL (<150)
[2022-07-20 08:59] LABS: TOTAL 25(OH) VITAMIN D 34.7 NG/ML (30.0-100.0)
[2022-07-20 09:00] LABS: VITAMIN B12 LEVEL 1247 PG/ML (247-911)
== END ==
LOC: M LAB 08:05
PROVIDERS: ATTEND Registered Nurse
DX: E66.01 Morbid (severe) obesity due to excess calories (principal)

== ENCOUNTER → 2022-11-09 | Outpatient (CLI) | payer MEDICARE ==
[2022-11-09 07:57] LABS: BASO # 0.1 10^3/uL (0.0-0.2); BASO % 1.3 % (0.0-1.0); EOS # 0.3 10^3/uL (0.0-0.5); EOS % 4.6 % (0.0-3.0); HEMATOCRIT 39.9 % (36.0-47.0); HEMOGLOBIN 12.9 g/dl (12.0-15.5); LYMPH # 1.9 10^3/uL (1.5-5.0); LYMPH % 31.5 % (24.0-44.0); MEAN CORPUSCULAR HEMOGLOBIN 29.7 pg (27.0-33.0); MEAN CORPUSCULAR HGB CONC 32.3 g/dl (32.0-36.5); MEAN CORPUSCULAR VOLUME 91.7 fl (80.0-96.0); MONO # 0.5 10^3/uL (0.0-0.8); MONO % 7.5 % (2.0-8.0); NEUTROPHILS # 3.3 10^3/uL (1.5-8.5); NEUTROPHILS % 54.9 % (36.0-66.0); PLATELET COUNT, AUTOMATED 225 10^3/uL (150-450); RED BLOOD COUNT 4.35 10^6/uL (4.00-5.40)
[2022-11-09 08:23] LABS: ALBUMIN 4.4 G/DL (3.2-5.2); BLOOD UREA NITROGEN 15 MG/DL (9-23); CALCIUM LEVEL 9.5 MG/DL (8.5-10.1); CARBON DIOXIDE LEVEL 32 MMOL/L (20-31); CHLORIDE LEVEL 106 MMOL/L (98-107); CHOLESTEROL LEVEL 192 MG/DL (<200); CHOLESTEROL RISK RATIO 3.02 (<5); CREATININE FOR GFR 0.59 MG/DL (0.55-1.30); GLOMERULAR FILTRATION RATE > 60.0 (>51); GLUCOSE, FASTING 83 MG/DL (60-100); HDL CHOLESTEROL 63.4 MG/DL (>40); IRON (FE) 72 UG/DL (50-170); LDL CHOLESTEROL 109.2 MG/DL (<100); NON-HDL-C 129 MG/DL; PERCENT SATURATION 23.6 % (13.2-45.0); PHOSPHORUS LEVEL 4.8 MG/DL (2.5-4.9); POTASSIUM SERUM 5.3 MMOL/L (3.5-5.1); SODIUM LEVEL 142 MMOL/L (136-145); TOTAL IRON BINDING CAPACITY 305 UG/DL (250-425); TRIGLYCERIDES LEVEL 97 MG/DL (<150)
[2022-11-09 08:27] LABS: FERRITIN 205.8 NG/ML (7.3-270.7)
[2022-11-09 08:28] LABS: FOLATE > 24.0 NG/ML (>5.4); VITAMIN B12 LEVEL 1449 PG/ML (211-911)
== END ==
LOC: M LAB 07:13
PROVIDERS: ATTEND Physician Assistant
DX: I10 Essential (primary) hypertension (principal); D51.9 Vitamin B12 deficiency anemia, unspecified; D52.9 Folate deficiency anemia, unspecified; E55.9 Vitamin D deficiency, unspecified; D50.9 Iron deficiency anemia, unspecified

== ENCOUNTER → 2022-12-30 | Outpatient (CLI) | payer MEDICARE | LOC: M WHC 06:46 | PROVIDERS: ATTEND Physician Assistant | DX: Z12.31 Encounter for screening mammogram for malignant neoplasm of breast (principal) ==

== ENCOUNTER → 2023-02-08 | Outpatient (CLI) | payer MEDICARE ==
[2023-02-08 07:21] LABS: BASO # 0.1 10^3/uL (0.0-0.2); BASO % 0.9 % (0.0-1.0); EOS # 0.2 10^3/uL (0.0-0.5); EOS % 2.9 % (0.0-3.0); HEMATOCRIT 36.8 % (36.0-47.0); HEMOGLOBIN 12.2 g/dl (12.0-15.5); LYMPH # 1.7 10^3/uL (1.5-5.0); MEAN CORPUSCULAR HEMOGLOBIN 29.8 pg (27.0-33.0); MEAN CORPUSCULAR HGB CONC 33.2 g/dl (32.0-36.5); MONO # 0.6 10^3/uL (0.0-0.8); MONO % 9.5 % (2.0-8.0); NEUTROPHILS # 3.3 10^3/uL (1.5-8.5); NEUTROPHILS % 56.4 % (36.0-66.0); PLATELET COUNT, AUTOMATED 200 10^3/uL (150-450); RED BLOOD COUNT 4.09 10^6/uL (4.00-5.40); WHITE BLOOD COUNT 5.8 10^3/uL (4.0-10.0)
[2023-02-08 07:54] LABS: TOTAL 25(OH) VITAMIN D 28.4 NG/ML (20.0-100.0)
[2023-02-08 07:55] LABS: FERRITIN 176.3 NG/ML (7.3-270.7); VITAMIN B12 LEVEL 1459 PG/ML (211-911)
[2023-02-08 07:56] LABS: ALBUMIN 4.4 G/DL (3.2-5.2); ALKALINE PHOSPHATASE 111 U/L (46-116); ALT/SGPT 46 U/L (7.0-40); AST/SGOT 31 U/L (<34); BLOOD UREA NITROGEN 15 MG/DL (9-23); CALCIUM LEVEL 9.1 MG/DL (8.5-10.1); CARBON DIOXIDE LEVEL 30 MMOL/L (20-31); CHLORIDE LEVEL 107 MMOL/L (98-107); CREATININE FOR GFR 0.59 MG/DL (0.55-1.30); GLOMERULAR FILTRATION RATE > 60.0 (>51); GLUCOSE, FASTING 82 MG/DL (60-100); IRON (FE) 66 UG/DL (50-170); PERCENT SATURATION 22.4 % (13.2-45.0); POTASSIUM SERUM 4.1 MMOL/L (3.5-5.1); SODIUM LEVEL 144 MMOL/L (136-145); TOTAL IRON BINDING CAPACITY 295 UG/DL (250-425); TOTAL PROTEIN 7.1 G/DL (5.7-8.2)
== END ==
LOC: M LAB 06:24
PROVIDERS: ATTEND Surgery
DX: K91.2 Postsurgical malabsorption, not elsewhere classified (principal)

== ENCOUNTER 2023-03-02 06:09 | Day surgery (SDC) | payer MEDICARE, OTHER ==
[~2023-03-02] VITALS: Ht 152.4 cm; Wt 53.4 kg
[2023-03-02] MEDS ORDERED: ceFAZolin SOD 2 GM in IV 1 EA IV ONE (06:30)
[2023-03-02] MEDS ORDERED: LR 1,000 ML IV SCH (06:35)
[2023-03-02] MEDS ORDERED: GENTAMICIN SULF 80MG/2ML VIAL As Ordered ONE (07:12)
[2023-03-02] MEDS ORDERED: BUPIVACAINE HCL 0.25% 10ML VIAL As Ordered ONE (07:12)
[2023-03-02] MEDS ORDERED: BUPIVACAINE LIPOSOME/PF 1.3% 20ML VIAL (13.3MG/ML)(EXPAREL) As Ordered ONE ×2 (07:13→07:32)
[2023-03-02] MEDS ORDERED: ONDANSETRON 4MG 2ML VIAL As Ordered ONE (07:28)
[2023-03-02] MEDS ORDERED: propofoL 200 MG/20 ML VIAL As Ordered ONE (07:28)
[2023-03-02] MEDS ORDERED: LIDOCAINE 2% 100MG/5ML SDV (FOR ANES.) As Ordered ONE (07:28)
[2023-03-02] MEDS ORDERED: ROCURONIUM BROMIDE 50MG/5ML VIAL As Ordered ONE (07:28)
[2023-03-02] MEDS ORDERED: MIDAZOLAM INJ 2MG/2ML VIAL As Ordered ONE (07:28)
[2023-03-02] MEDS ORDERED: fentaNYL 250 MCG/5 ML INJECTION As Ordered ONE (07:28)
[2023-03-02] MEDS ORDERED: GLYCOPYRROLATE INJ 0.2 MG/ML 2 ML VIAL As Ordered ONE (07:59)
[2023-03-02] MEDS ORDERED: ACETAMINOPHEN 1000MG 100ML IV BAG As Ordered ONE (08:06)
[2023-03-02] MEDS ORDERED: METOCLOPRAMIDE INJ 10MG/2ML VIAL As Ordered ONE (08:37)
[2023-03-02] MEDS ORDERED: ePHEDrine SULFATE 25 MG/5 ML(5MG/ML) SYRINGE As Ordered ONE (08:46)
[2023-03-02] MEDS ORDERED: ONDANSETRON 4MG 2ML VIAL IV PRN (10:15)
[2023-03-02] MEDS ORDERED: oxyCODONE 5MG TAB PO PRN (10:15)
[2023-03-02] MEDS ORDERED: fentaNYL 100 MCG/2 ML INJECTION IV PRN (10:15)
[2023-03-02] MEDS ORDERED: MORPHINE 2 MG/ML 1ML VIAL IV PRN (10:15)
[2023-03-02] MEDS ORDERED: TRAM50TA2 PO (10:20)
[2023-03-02 13:00] VITALS: BP 159/77
== END 2023-03-02 14:00 | disposition home or self-care (01) ==
LOC: M SDC 06:09
PROVIDERS: ATTEND Plastic Surgery Surgery of the Hand
DX: L98.7 Excessive and redundant skin and subcutaneous tissue (principal); Z98.84 Bariatric surgery status; M19.012 Primary osteoarthritis, left shoulder; M19.071 Primary osteoarthritis, right ankle and foot; I10 Essential (primary) hypertension; Q85.00 Neurofibromatosis, unspecified; Z79.899 Other long term (current) drug therapy
CPT/HCPCS: 15836; 88300; C9290; J0131; J0690; J1100; J1580; J2250; J2405; J2765; J3010

== ENCOUNTER → 2023-08-23 | Outpatient (CLI) | payer MEDICARE, OTHER ==
[~2023-08-23] MED LIST changes: +CYAN-1 PO; -CYAN100050 PO; +TRAM50TA2 PO
== END ==
LOC: M RAD 13:18
PROVIDERS: ATTEND Nurse Practitioner Adult Health
DX: R59.0 Localized enlarged lymph nodes (principal)

== ENCOUNTER → 2023-09-13 | Outpatient (CLI) | payer MEDICARE, OTHER | LOC: M RAD 12:13 | PROVIDERS: ATTEND Nurse Practitioner Adult Health | DX: I89.0 Lymphedema, not elsewhere classified (principal) ==

== ENCOUNTER → 2023-11-01 | Outpatient (REF) | payer MEDICARE, OTHER | LOC: M LAB REF 17:24 | PROVIDERS: ATTEND Internal Medicine Endocrinology, Diabetes & Metabolism | DX: E04.2 Nontoxic multinodular goiter (principal) ==

== ENCOUNTER → 2024-01-05 | Outpatient (CLI) | payer MEDICARE, OTHER | LOC: M WHC 07:41 | PROVIDERS: ATTEND Nurse Practitioner Adult Health | DX: Z12.31 Encounter for screening mammogram for malignant neoplasm of breast (principal); M81.0 Age-related osteoporosis without current pathological fracture ==

== ENCOUNTER → 2024-02-14 | Outpatient (REF) | payer MEDICARE, OTHER | LOC: M LAB REF 15:10 | PROVIDERS: ATTEND Internal Medicine Endocrinology, Diabetes & Metabolism | DX: E04.2 Nontoxic multinodular goiter (principal) ==

== ENCOUNTER → 2024-02-16 | Outpatient (CLI) | payer MEDICARE ==
[2024-02-16 10:04] LABS: HEMOGLOBIN A1c 4.6 % (4.0-6.0)
[2024-02-16 10:32] LABS: CHOLESTEROL RISK RATIO 2.49 (<5); HDL CHOLESTEROL 75.1 MG/DL (>40); LDL CHOLESTEROL 96.9 MG/DL (<100); NON-HDL-C 111.9 MG/DL
== END ==
LOC: M LAB 07:43
PROVIDERS: ATTEND Nurse Practitioner Adult Health
DX: I89.0 Lymphedema, not elsewhere classified (principal); E78.00 Pure hypercholesterolemia, unspecified

== ENCOUNTER → 2024-02-16 | Outpatient (CLI) | payer MEDICARE ==
[2024-02-16 09:14] LABS: HEMATOCRIT 37.7 % (36.0-47.0); HEMOGLOBIN 12.6 g/dl (12.0-15.5); MEAN CORPUSCULAR HEMOGLOBIN 30.6 pg (27.0-33.0); MEAN CORPUSCULAR HGB CONC 33.4 g/dl (32.0-36.5); MEAN CORPUSCULAR VOLUME 91.5 fl (80.0-96.0); PLATELET COUNT, AUTOMATED 200 10^3/uL (150-450); RED BLOOD COUNT 4.12 10^6/uL (4.00-5.40)
[2024-02-16 10:34] LABS: ALBUMIN 4.1 G/DL (3.2-5.2); ALKALINE PHOSPHATASE 114 U/L (46-116); ALT/SGPT 41 U/L (7.0-40); AST/SGOT 27 U/L (<34); BILIRUBIN,TOTAL 0.8 MG/DL (0.3-1.2); BLOOD UREA NITROGEN 17 MG/DL (9-23); CALCIUM LEVEL 9.3 MG/DL (8.5-10.1); CARBON DIOXIDE LEVEL 30 MMOL/L (20-31); CHLORIDE LEVEL 108 MMOL/L (98-107); CREATININE FOR GFR 0.58 MG/DL (0.55-1.30); GLOMERULAR FILTRATION RATE > 60.0 (>51); GLUCOSE, FASTING 80 MG/DL (60-100); IRON (FE) 90 UG/DL (50-170); PERCENT SATURATION 31.6 % (13.2-45.0); POTASSIUM SERUM 4.8 MMOL/L (3.5-5.1); SODIUM LEVEL 142 MMOL/L (136-145); TOTAL IRON BINDING CAPACITY 285 UG/DL (250-425); TOTAL PROTEIN 6.8 G/DL (5.7-8.2)
[2024-02-16 10:39] LABS: FERRITIN 163.2 NG/ML (7.3-270.7)
[2024-02-16 10:44] LABS: VITAMIN B12 LEVEL 1023 PG/ML (211-911)
[2024-02-16 10:45] LABS: TOTAL 25(OH) VITAMIN D 23.7 NG/ML (20.0-100.0)
== END ==
LOC: M LAB 07:40
PROVIDERS: ATTEND Surgery
DX: K91.2 Postsurgical malabsorption, not elsewhere classified (principal)

== ENCOUNTER → 2024-03-15 | Outpatient (CLI) | payer MEDICARE | LOC: M RAD 11:27 | PROVIDERS: ATTEND Nurse Practitioner Adult Health | DX: M54.2 Cervicalgia (principal); M25.512 Pain in left shoulder ==

== ENCOUNTER → 2024-04-14 | Outpatient (CLI) | payer MEDICARE, MEDICAID | LOC: M PAIN 08:00 | PROVIDERS: ATTEND Nurse Practitioner Family | DX: M79.10 Myalgia, unspecified site (principal); M81.0 Age-related osteoporosis without current pathological fracture; Z79.84 Long term (current) use of oral hypoglycemic drugs; Z79.899 Other long term (current) drug therapy; Z88.6 Allergy status to analgesic agent ==

== ENCOUNTER 2024-06-07 07:41 | Day surgery (SDC) | payer MEDICARE, MEDICAID ==
[~2024-06-07] VITALS: Ht 154.9 cm; Wt 54.9 kg
[~2024-06-07 07:41] MED LIST changes: +ALEN70TA82 PO; +FLUTISP; +THERTAB52 PO
[2024-06-07] MEDS ORDERED: LIDOCAINE 2% 100MG/5ML SDV (FOR ANES.) As Ordered ONE (08:17)
[2024-06-07] MEDS ORDERED: propofoL 200 MG/20 ML VIAL As Ordered ONE (08:17)
[2024-06-07] MEDS ORDERED: fentaNYL 100 MCG/2 ML INJECTION As Ordered ONE (08:17)
[2024-06-07] MEDS ORDERED: KETOROLAC 60MG 2ML VIAL As Ordered ONE (08:17)
[2024-06-07] MEDS ORDERED: dexmedeTOMIDine (4MCG/ML)200MCG/50ML BTL (PRECEDEX) As Ordered ONE (08:17)
[2024-06-07] MEDS ORDERED: MIDAZOLAM INJ 2MG/2ML VIAL As Ordered ONE (08:17)
[2024-06-07] MEDS ORDERED: LR 1,000 ML IV SCH (08:20)
[2024-06-07] MEDS ORDERED: ONDANSETRON 4MG 2ML VIAL As Ordered ONE (08:23)
[2024-06-07] MEDS: ceFAZolin SOD 2 GM in IV 1 EA IV ONE (09:45)
[2024-06-07] MEDS: LIDOCAINE 1% SDV 30ML VIAL As Ordered ONE (09:51)
[2024-06-07] MEDS ORDERED: METOCLOPRAMIDE INJ 10MG/2ML VIAL As Ordered ONE (10:05)
[2024-06-07] MEDS ORDERED: ACETAMINOPHEN 1000MG 100ML IV BAG As Ordered ONE (10:07)
[2024-06-07 10:35] VITALS: BP 128/63; TEMP 97; O2SAT 100
== END 2024-06-07 10:49 | disposition home or self-care (01) ==
LOC: M SDC 07:41
PROVIDERS: ATTEND Podiatrist Foot & Ankle Surgery
DX: M20.5X1 Other deformities of toe(s) (acquired), right foot (principal); Z79.899 Other long term (current) drug therapy; Z90.710 Acquired absence of both cervix and uterus; Z90.89 Acquired absence of other organs; Z98.84 Bariatric surgery status

== ENCOUNTER → 2024-11-16 | Outpatient (CLI) | payer OTHER ==
[~2024-11-16] MED LIST changes: +NORCO, ANEXSIA 5/325MG TABLET (HYDROcodone/ACETAMINOPHEN) As Ordered ONE; +TRIAMCINOLONE ACETONIDE SUSP 40MG/ML 1ML VIAL As Ordered ONE; +diazePAM 5MG TABLET As Ordered ONE; +oxyCODONE 5MG TAB As Ordered ONE
== END ==
LOC: M PAIN 08:00
PROVIDERS: ATTEND Anesthesiology
DX: M79.18 Myalgia, other site (principal); G89.29 Other chronic pain; E78.00 Pure hypercholesterolemia, unspecified; M81.0 Age-related osteoporosis without current pathological fracture; Z79.899 Other long term (current) drug therapy; Z88.6 Allergy status to analgesic agent
CPT/HCPCS: 20552; J0665; J3301

== ENCOUNTER → 2024-12-18 | Outpatient (CLI) | payer OTHER ==
[~2024-12-18] MED LIST changes: -NORCO, ANEXSIA 5/325MG TABLET (HYDROcodone/ACETAMINOPHEN) As Ordered ONE; -TRIAMCINOLONE ACETONIDE SUSP 40MG/ML 1ML VIAL As Ordered ONE; -diazePAM 5MG TABLET As Ordered ONE; -oxyCODONE 5MG TAB As Ordered ONE
== END ==
LOC: M PAIN 14:30
PROVIDERS: ATTEND Nurse Practitioner Family
DX: M79.18 Myalgia, other site (principal); M47.812 Spondylosis without myelopathy or radiculopathy, cervical region; G89.29 Other chronic pain; E78.00 Pure hypercholesterolemia, unspecified; M81.0 Age-related osteoporosis without current pathological fracture; Z79.899 Other long term (current) drug therapy; Z88.6 Allergy status to analgesic agent

== ENCOUNTER → 2025-01-15 | Outpatient (CLI) | payer MEDICARE | LOC: M WHC 07:29 | DX: Z12.31 Encounter for screening mammogram for malignant neoplasm of breast (principal) ==

== ENCOUNTER → 2025-05-01 | Outpatient (CLI) | payer MEDICARE ==
[~2025-05-01] MED LIST changes: -BIOT1000 PO; +BIOT10002 PO
[2025-05-01 07:00] LABS: BASO # 0.1 10^3/uL (0.0-0.2); BASO % 1.0 % (0.0-1.0); EOS # 0.3 10^3/uL (0.0-0.5); EOS % 3.6 % (0.0-3.0); LYMPH # 1.8 10^3/uL (1.5-5.0); LYMPH % 26.1 % (24.0-44.0); MONO # 0.7 10^3/uL (0.0-0.8); MONO % 9.7 % (2.0-8.0); NEUTROPHILS # 4.1 10^3/uL (1.5-8.5); NEUTROPHILS % 59.5 % (36.0-66.0); PLATELET COUNT, AUTOMATED 237 10^3/uL (150-450)
[2025-05-01 07:25] LABS: ALT/SGPT 37 U/L (7.0-40); AST/SGOT 31 U/L (<34); CALCIUM LEVEL 9.4 MG/DL (8.3-10.6); CARBON DIOXIDE LEVEL 28 MMOL/L (20-31); CHLORIDE LEVEL 107 MMOL/L (98-107); CHOLESTEROL LEVEL 187 MG/DL (<200); CHOLESTEROL RISK RATIO 2.82 (<5); CREATININE FOR GFR 0.68 MG/DL (0.55-1.30); GLOMERULAR FILTRATION RATE > 90.0 (>45); IRON (FE) 74 UG/DL (50-170); LDL CHOLESTEROL 108.4 MG/DL (<100); NON-HDL-C 120.8 MG/DL; POTASSIUM SERUM 4.0 MMOL/L (3.5-5.1); SODIUM LEVEL 146 MMOL/L (136-145); TRIGLYCERIDES LEVEL 62 MG/DL (<150)
[2025-05-01 07:26] LABS: PERCENT SATURATION 24.2 % (13.2-45.0)
[2025-05-01 07:27] LABS: TOTAL 25(OH) VITAMIN D 30.9 NG/ML (20.0-100.0)
[2025-05-01 07:28] LABS: VITAMIN B12 LEVEL 1094 PG/ML (211-911)
== END ==
LOC: M LAB 06:18
PROVIDERS: ATTEND Registered Nurse
DX: E66.3 Overweight (principal); Z98.84 Bariatric surgery status; K91.2 Postsurgical malabsorption, not elsewhere classified

== ENCOUNTER 2025-08-30 13:34 | Outpatient (RCR) | payer MEDICARE | END 2025-09-23 | LOC: M PT 13:34 | PROVIDERS: ATTEND Otolaryngology | DX: M26.601 Right temporomandibular joint disorder, unspecified (principal) ==